=== PATIENT | female | born 1945 | race Caucasian/White ===

== ENCOUNTER 2016-07-26 18:31 | Emergency (ER) | payer OTHER ==
[2012-11-05 06:38] VITALS: BMI 33.9
[2016-07-26 19:07] LABS: BASOPHILS 0.2 % (0.0-2.0); EOSINOPHILS 1.2 % (0-7); HEMATOCRIT 37.1 % (36.0-48.0); IMMATURE GRANULOCYTES 0.2 % (0-5); LYMPHOCYTES 20.4 % (15-50); MCH 28.3 pg (26.0-34.0); MCHC 32.3 g/dL (31.0-37.0); MCV 87.5 fL (80.0-100.0); MONOCYTES 11.9 % (2-11); NEUTROPHILS 66.1 % (40-80); PLATELET COUNT 188 10x3/uL (130-400); RBC 4.24 10x6/uL (4.00-5.40); RDW 13.2 % (11.5-14.5)
[2016-07-26 19:27] LABS: ALBUMIN 3.2 g/dL (3.4-5.0); ALKALINE PHOSPHATASE 99 U/L (46-116); ALT (SGPT) 17 U/L (10-68); BILIRUBIN - TOTAL 0.31 mg/dL (0.2-1.3); CALC OSMOLALITY 275 mosm/kg (275-300); CALCIUM 8.7 mg/dL (8.5-10.1); CHLORIDE - SERUM 98 mmol/L (98-107); CREATININE - SERUM 0.7 mg/dL (0.6-1.3); GLUCOSE 136 mg/dL (74-106); POTASSIUM - SERUM 4.1 mmol/L (3.5-5.1); PROTEIN - SERUM 7.2 g/dL (6.4-8.2); SODIUM 137 mmol/L (136-145); UREA NITROGEN 13 mg/dL (7-18); eGFR NON AFRICAN AMERICAN 87 mL/min (90-120)
[2016-07-26 19:33] LABS: AMYLASE - SERUM 66 U/L (25-115); LIPASE 124 U/L (73-393)
[2016-07-26 19:35] LABS: CREATINE KINASE 179 UL (21-215); MAGNESIUM - SERUM 1.3 mg/dL (1.8-2.4); TROPONIN-I < 0.017 ng/mL (0.000-0.060)
[2016-07-26 19:38] LABS: KETONE - SERUM NEGATIVE (NEGATIVE)
[2016-07-26 19:57] LABS: APPEARANCE CLEAR (CLEAR); BILIRUBIN NEGATIVE (NEGATIVE); COLOR YELLOW (YELLOW); GLUCOSE 50 mg/dL (NEGATIVE); KETONE NEGATIVE (NEGATIVE); LEUKOCYTE ESTERASE NEGATIVE (NEGATIVE); NITRITE NEGATIVE (NEGATIVE); PROTEIN NEGATIVE (NEGATIVE); UROBILINOGEN NORMAL (NORMAL)
== END 2016-07-26 22:51 | disposition home or self-care (01) ==
LOC: D.ER 18:31
PROVIDERS: Emergency Medicine
DX: E86.0 Dehydration (principal); K52.9 Noninfective gastroenteritis and colitis, unspecified; T50.905A Adverse effect of unspecified drugs, medicaments and biological substances, initial encounter; Y92.89 Other specified places as the place of occurrence of the external cause; I10 Essential (primary) hypertension; E11.9 Type 2 diabetes mellitus without complications; Z85.3 Personal history of malignant neoplasm of breast

== ENCOUNTER → 2016-12-20 16:36 | Outpatient (CLI) | payer MEDICARE ==
[2012-11-05 06:38] VITALS: BMI 33.9
== END | disposition home or self-care (01) ==
LOC: D.MAMMO 14:00
DX: Z85.3 Personal history of malignant neoplasm of breast (principal)

== ENCOUNTER → 2017-01-11 10:09 | Outpatient (CLI) | payer MEDICARE ==
[2012-11-05 06:38] VITALS: BMI 33.9
[2017-01-11 10:55] LABS: CHOL - HDL RATIO 2.5 ratio (2.3-4.1)
== END | disposition home or self-care (01) ==
LOC: D.LAB 08:30
PROVIDERS: Family Medicine
DX: E78.5 Hyperlipidemia, unspecified (principal)

== ENCOUNTER → 2017-07-27 12:19 | Outpatient (CLI) | payer MEDICARE ==
[2012-11-05 06:38] VITALS: BMI 33.9
== END | disposition home or self-care (01) ==
LOC: D.RAD 12:19
DX: M79.605 Pain in left leg (principal); M79.604 Pain in right leg; R22.43 Localized swelling, mass and lump, lower limb, bilateral

== ENCOUNTER → 2017-09-10 14:57 | Outpatient (CLI) | payer MEDICARE ==
[2012-11-05 06:38] VITALS: BMI 33.9
== END | disposition home or self-care (01) ==
LOC: D.US 14:30
DX: M79.662 Pain in left lower leg (principal); R60.0 Localized edema

== ENCOUNTER → 2018-01-08 15:07 | Outpatient (CLI) | payer MEDICARE ==
[2012-11-05 06:38] VITALS: BMI 33.9
== END | disposition home or self-care (01) ==
LOC: D.US 13:30
DX: R60.9 Edema, unspecified (principal); M79.604 Pain in right leg

== ENCOUNTER → 2018-01-29 21:53 | Outpatient (CLI) | payer MEDICARE ==
[2012-11-05 06:38] VITALS: BMI 33.9
== END | disposition home or self-care (01) ==
LOC: D.MAMMO 08:30
DX: C50.919 Malignant neoplasm of unspecified site of unspecified female breast (principal)

== ENCOUNTER 2018-04-22 17:40 | Emergency (ER) | payer MEDICARE ==
[~2018-04-22] VITALS: Ht 167.6 cm; Wt 84.1 kg
[2018-04-22 17:46] VITALS: Ht 167.6 cm; Wt 84.1 kg
[2018-04-22] MEDS ORDERED: FEMARA2.5 MG PO (17:48)
[2018-04-22] MEDS ORDERED: LOSARTAN POTASS25 MG PO (17:49)
[2018-04-22] MEDS ORDERED: NEURONTIN 300300 MG PO (17:49)
[2018-04-22] MEDS ORDERED: NORCO 10-325 TA1 TAB PO (17:49)
[2018-04-22] MEDS ORDERED: PRAVACHOL80 MG (17:49)
[2018-04-22] MEDS ORDERED: CALAN SR240 MG PO (17:49)
[2018-04-22] MEDS ORDERED: GLUCOPHAGE1000 MG PO (17:49)
[2018-04-22] MEDS ORDERED: ASPIRIN325 MG PO (17:50)
[2018-04-22] MEDS ORDERED: CO ENZYME Q (17:50)
[2018-04-22] MEDS ORDERED: COMPLETE SENIOR VITA (17:50)
[2018-04-22] MEDS ORDERED: OMEPRAZOLE DR 20 MG (17:50)
[2018-04-22 18:31] LABS: BASOPHILS 0.1 % (0-2); EOSINOPHILS 0.9 % (0-7); HEMATOCRIT 37.4 % (36.0-48.0); HEMOGLOBIN 11.8 g/dL (12-16); MCH 28.9 pg (26.0-34.0); MCHC 31.6 g/dL (31.0-37.0); MCV 91.7 fL (80.0-100.0); PLATELET COUNT 178 10x3/uL (130-400); RBC 4.08 10x6/uL (4.00-5.40); RDW 14.7 % (11.5-14.5)
[2018-04-22 18:42] LABS: APTT 28.3 SECONDS (22.8-39.4); INR 0.99 (0.85-1.17); PROTIME 12.8 SECONDS (11.6-15.0)
[2018-04-22 18:44] LABS: D-DIMER-QUANTITATIVE 1.56 ug/mLFEU (0.20-0.54)
[2018-04-22 19:06] LABS: ALBUMIN 3.6 g/dL (3.4-5.0); ANION GAP 13.2 mmol/L (8-16); BILIRUBIN - TOTAL 0.17 mg/dL (0.2-1.3); CALCIUM 8.8 mg/dL (8.5-10.1); CARBON DIOXIDE 27.9 mmol/L (21.0-32.0); CREATININE - SERUM 0.9 mg/dL (0.6-1.3); POTASSIUM - SERUM 4.1 mmol/L (3.5-5.1); PROTEIN - SERUM 7.5 g/dL (6.4-8.2)
[2018-04-22 21:20] VITALS: BP 147/76
== END 2018-04-22 21:20 | disposition home or self-care (01) ==
LOC: D.ER 17:40
PROVIDERS: Family Medicine
DX: M79.662 Pain in left lower leg (principal); I25.10 Atherosclerotic heart disease of native coronary artery without angina pectoris; E11.9 Type 2 diabetes mellitus without complications; I87.2 Venous insufficiency (chronic) (peripheral); K21.9 Gastro-esophageal reflux disease without esophagitis; I10 Essential (primary) hypertension

== ENCOUNTER → 2018-05-08 12:37 | Outpatient (CLI) | payer MEDICARE ==
[2018-04-22 17:46] VITALS: BMI 29.9
[~2018-05-08 12:37] MED LIST: ASPIRIN325 MG PO; CALAN SR240 MG PO; CO ENZYME Q; COMPLETE SENIOR VITA; FEMARA2.5 MG PO; GLUCOPHAGE1000 MG PO; LOSARTAN POTASS25 MG PO; NEURONTIN 300300 MG PO; NORCO 10-325 TA1 TAB PO; OMEPRAZOLE DR 20 MG; PRAVACHOL80 MG
== END | disposition home or self-care (01) ==
LOC: D.CT 12:37
DX: C55 Malignant neoplasm of uterus, part unspecified (principal)

== ENCOUNTER 2018-05-16 06:43 | Outpatient (CLI) | payer MEDICARE ==
[~2018-05-16] VITALS: Ht 167.6 cm; Wt 79.5 kg
[2018-05-16 07:13] LABS: BASOPHILS 0.3 % (0-2); EOSINOPHILS 1.6 % (0-7); HEMATOCRIT 35.9 % (36.0-48.0); HEMOGLOBIN 11.4 g/dL (12-16); IMMATURE GRANULOCYTES 0.2 % (0-5); MCH 28.7 pg (26.0-34.0); MCHC 31.8 g/dL (31.0-37.0); MCV 90.4 fL (80.0-100.0); MEAN PLATELET VOLUME 9.8 fL (7.4-10.4); MONOCYTES 10.8 % (2-11); NEUTROPHILS 67.1 % (40-80); PLATELET COUNT 168 10x3/uL (130-400); RBC 3.97 10x6/uL (4.00-5.40); RDW 14.9 % (11.5-14.5); WBC 5.8 10x3/uL (4.8-10.8)
[2018-05-16 07:34] LABS: APTT 34.9 SECONDS (22.8-39.4); INR 1.03 (0.85-1.17)
[2018-05-16] MEDS ORDERED: MORPHINE SULFAT30 M6 PO (08:24)
[2018-05-16 08:34] VITALS: BP 109/57; Ht 167.6 cm; Wt 79.5 kg
[2018-05-16 09:02] LABS: ANION GAP 18.5 mmol/L (8-16); CALCIUM 8.6 mg/dL (8.5-10.1); CREATININE - SERUM 0.9 mg/dL (0.6-1.3); POTASSIUM - SERUM 4.2 mmol/L (3.5-5.1)
== END 2018-05-16 12:07 | disposition home or self-care (01) ==
LOC: D.SP 06:43 → D.CT 09:00 → D.SP 09:00
PROVIDERS: Radiology Diagnostic Radiology
DX: C78.6 Secondary malignant neoplasm of retroperitoneum and peritoneum (principal); Z85.42 Personal history of malignant neoplasm of other parts of uterus; Z01.812 Encounter for preprocedural laboratory examination